=== PATIENT | female | born 1935 | race Caucasian/White ===

== ENCOUNTER 2017-01-22 20:12 | Emergency (ER) | payer MEDICARE, BC ==
[~2017-01-22] VITALS: Ht 165.1 cm; Wt 57.1 kg
[~2017-01-22 20:12] MED LIST: AMIODARONE HCL100 MG PO; CERTAVITE SR-AN1 TAB PO; CO Q-10200 MG PO; ELIQUIS2.5 MG PO; MAGNESIUM MALATE1 GM PO; PRILOSEC20 MG PO; PROLIA60 MG/1 ML INJECT; SYNTHROID88 MCG PO; TYLENOL325 MG PO; ZIAC 5-6.25 MG1 TAB PO
== END 2017-01-22 22:05 | disposition short-term general hospital (02) ==
LOC: ER 20:12
PROC: 0HQGXZZ Repair Left Hand Skin, External Approach (ICD-10-PCS; principal; 2017-01-22)
DX: S61.412A Laceration without foreign body of left hand, initial encounter (principal); S61.411A Laceration without foreign body of right hand, initial encounter; W22.8XXA Striking against or struck by other objects, initial encounter

== ENCOUNTER 2017-03-05 10:16 | Emergency (ER) | payer MEDICARE, BC ==
[~2017-03-05] VITALS: Ht 165.1 cm; Wt 59.0 kg
[2017-03-05] MEDS ORDERED: TOPROL XL25 MG PO (11:30)
[2017-03-05] MEDS ORDERED: APRESOLINE25 MG PO (11:30)
[2017-03-05] MEDS ORDERED: D BIOTIN PO (11:39)
[2017-03-05] MEDS ORDERED: LOVAZA1 GM PO ×2 (11:44→11:46)
[2017-03-05] MEDS ORDERED: VITAMIN D31000 UNI1 PO (11:46)
[2017-03-05] MEDS ORDERED: TYLENOL325 MG PO (11:59)
== END 2017-03-05 11:55 | disposition short-term general hospital (02) ==
LOC: ER 10:16
DX: R03.0 Elevated blood-pressure reading, without diagnosis of hypertension (principal); Z86.73 Personal history of transient ischemic attack (TIA), and cerebral infarction without residual deficits; Z79.01 Long term (current) use of anticoagulants; Z79.899 Other long term (current) drug therapy

== ENCOUNTER 2017-03-11 04:47 | Emergency (ER) | payer MEDICARE, BC ==
[~2017-03-11] VITALS: Ht 165.1 cm; Wt 59.0 kg
[~2017-03-11 04:47] MED LIST changes: +APRESOLINE25 MG PO; +D BIOTIN PO; +LOVAZA1 GM PO; +TOPROL XL25 MG PO; +VITAMIN D31000 UNI1 PO
== END 2017-03-11 06:25 | disposition short-term general hospital (02) ==
LOC: ER 04:47
DX: I10 Essential (primary) hypertension (principal); R01.1 Cardiac murmur, unspecified; E03.9 Hypothyroidism, unspecified; I48.91 Unspecified atrial fibrillation; K21.9 Gastro-esophageal reflux disease without esophagitis; M81.0 Age-related osteoporosis without current pathological fracture; Z88.8 Allergy status to other drugs, medicaments and biological substances; Z79.899 Other long term (current) drug therapy